=== PATIENT | female | born 1970 | race Caucasian/White ===

== ENCOUNTER 2023-12-22 16:01 | Outpatient (RCR) | payer BC, SELFPAY | END 2023-12-22 23:59 | disposition home or self-care (01) | LOC: RPT 16:01 | PROVIDERS: ATTENDING PHYSICIAN Student in an Organized Health Care Education/Training Program; FAMILY PHYSICIAN Nurse Practitioner | DX: M25.572 Pain in left ankle and joints of left foot (principal); M19.072 Primary osteoarthritis, left ankle and foot; Z73.6 Limitation of activities due to disability; R26.2 Difficulty in walking, not elsewhere classified; G89.29 Other chronic pain | CPT/HCPCS: 97110; 97161 ==

== ENCOUNTER → 2024-04-26 13:05 | Outpatient (REF) | payer BC, SELFPAY ==
[2024-04-26 13:06] LABS: % Basophils 1.1 % (0-2); % Eosinophils 0.4 % (0-6); % Immature Granulocytes 0.4 % (0-0.5); % Lymphocytes 28.7 % (20.5-51.1); % Monocytes 12.1 % (1.7-9.3); % Neutrophils 57.3 % (42.2-75.2); Absolute Basophils 0.1 10^3/uL (0-0.2); Absolute Lymphocytes 1.6 10^3/uL (1.2-3.4); Absolute Monocytes 0.7 10^3/uL (0.1-0.6); Absolute Neutrophils 3.2 10^3/uL (1.4-6.5); Hematocrit 41.9 % (37.0-47.0); Hemoglobin 14.3 g/dL (12.0-16.0); Mean Corp Hgb Conc. 34.1 g/dL (33.0-37.0); Mean Corpuscular Hgb 29.2 pg (27.0-31.0); Mean Corpuscular Volume 85.5 fL (81.0-99.0); Mean Platelet Volume 11.2 fL (7.4-10.4); Nucleated Red Blood Cells % 0 %; Platelet Count 284 10^3/uL (130-400); Red Cell Dist. Width 13.5 % (11.5-14.5); White Blood Cell Count 5.6 10^3/uL (4.8-10.8)
[2024-04-26 13:25] LABS: ALT (SGPT) 74 U/L (0-35); AST (SGOT) 44 U/L (14-36); Albumin 4.5 g/dl (3.5-5.0); Alkaline Phosphatase 87 U/L (38-126); Blood Urea Nitrogen 22 mg/dl (7-17); Calcium 10.1 mg/dl (8.4-10.2); Carbon Dioxide 31 mmol/L (22-30); Chloride 97 mmol/L (98-107); Glucose 95 mg/dl (70-99); HDL Cholesterol 59 mg/dl; LDL Cholesterol, Calculated 186 mg/dl; Potassium 3.8 mmol/L (3.5-5.1); Sodium 139 mmol/L (135-145); Total Bilirubin 0.6 mg/dl (0.2-1.3); Total Cholesterol 268 mg/dl (50-199); Total Protein 7.6 g/dl (6.3-8.2); Triglyceride 115 mg/dl (10-149); Very Low Density Lipoprotein 23 mg/dl (0-30); eGFR > 60.00
[2024-04-26 13:55] LABS: TSH 0.92 uIU/ml (0.47-4.68)
[2024-04-26 13:56] LABS: Estradiol 39.8 pg/ml
[2024-04-29 00:33] LABS: Thyroid Peroxidase Ab (TPO) 0.7 IU/mL (0.0-9.0)
== END ==
LOC: CLAB 13:05
PROVIDERS: ATTENDING PHYSICIAN Nurse Practitioner
DX: Z00.00 Encounter for general adult medical examination without abnormal findings (principal); E78.5 Hyperlipidemia, unspecified; R53.83 Other fatigue; N95.1 Menopausal and female climacteric states
CPT/HCPCS: 80053; 80061; 82670; 83001; 83002; 84443; 85025; 86376

== ENCOUNTER → 2024-05-04 08:15 | Outpatient (REF) | payer BC, SELFPAY | LOC: CPAP 08:15 | PROVIDERS: ATTENDING PHYSICIAN Nurse Practitioner Adult Health | DX: Z01.419 Encounter for gynecological examination (general) (routine) without abnormal findings (principal) | CPT/HCPCS: G0123 ==

== ENCOUNTER → 2024-06-22 07:23 | Outpatient (REF) | payer BC, SELFPAY | LOC: HWWDC 07:23 | PROVIDERS: ATTENDING PHYSICIAN Nurse Practitioner Adult Health; FAMILY PHYSICIAN Nurse Practitioner | DX: Z12.31 Encounter for screening mammogram for malignant neoplasm of breast (principal) | CPT/HCPCS: 77063; 77067 ==

== ENCOUNTER → 2024-10-18 15:21 | Outpatient (REF) | payer BC, SELFPAY ==
[2024-10-18 16:19] LABS: HDL Cholesterol 67 mg/dl; LDL Cholesterol, Calculated 81 mg/dl; Total Cholesterol 164 mg/dl (50-199); Triglyceride 82 mg/dl (10-149); Very Low Density Lipoprotein 16 mg/dl (0-30)
== END ==
LOC: CLAB 15:21
PROVIDERS: ATTENDING PHYSICIAN Nurse Practitioner
DX: E78.5 Hyperlipidemia, unspecified (principal)
CPT/HCPCS: 80061

== ENCOUNTER → 2025-01-11 07:32 | Outpatient (REF) | payer BC, SELFPAY | LOC: HWRAD 07:32 | PROVIDERS: ATTENDING PHYSICIAN Nurse Practitioner | DX: M25.521 Pain in right elbow (principal); M70.21 Olecranon bursitis, right elbow | CPT/HCPCS: 73080 ==

== ENCOUNTER → 2025-06-22 16:14 | Outpatient (REF) | payer BC, SELFPAY ==
[2025-06-22 17:05] LABS: Hematocrit 43.3 % (37.0-47.0); Hemoglobin 14.1 g/dL (12.0-16.0); Mean Corp Hgb Conc. 32.6 g/dL (33.0-37.0); Mean Corpuscular Volume 87.5 fL (81.0-99.0); Nucleated Red Blood Cells % 0 %; Platelet Count 260 10^3/uL (130-400); Red Cell Dist. Width 14.2 % (11.5-14.5)
[2025-06-22 17:18] LABS: ALT (SGPT) 60 U/L (0-35); AST (SGOT) 42 U/L (14-36); Albumin 4.7 g/dl (3.5-5.0); Alkaline Phosphatase 111 U/L (38-126); Blood Urea Nitrogen 15 mg/dl (7-17); Calcium 9.8 mg/dl (8.4-10.2); Carbon Dioxide 29 mmol/L (22-30); Chloride 100 mmol/L (98-107); Glucose 96 mg/dl (70-99); HDL Cholesterol 57 mg/dl; LDL Cholesterol, Calculated 96 mg/dl; Potassium 3.9 mmol/L (3.5-5.1); Sodium 137 mmol/L (135-145); Total Protein 7.7 g/dl (6.3-8.2); Very Low Density Lipoprotein 23 mg/dl (0-30); eGFR > 60.00
[2025-06-22 17:54] LABS: TSH 0.67 uIU/ml (0.47-4.68)
== END ==
LOC: CLAB 16:14
PROVIDERS: ATTENDING PHYSICIAN Nurse Practitioner
DX: E78.5 Hyperlipidemia, unspecified (principal); R53.83 Other fatigue; Z12.11 Encounter for screening for malignant neoplasm of colon; I10 Essential (primary) hypertension
CPT/HCPCS: 36415; 80053; 80061; 84443; 85025

== ENCOUNTER → 2025-06-28 07:32 | Outpatient (REF) | payer BC, SELFPAY | LOC: HWWDC 07:32 | PROVIDERS: ATTENDING PHYSICIAN Nurse Practitioner Adult Health; FAMILY PHYSICIAN Nurse Practitioner | DX: Z12.31 Encounter for screening mammogram for malignant neoplasm of breast (principal) | CPT/HCPCS: 77063; 77067 ==

== ENCOUNTER → 2025-06-30 07:44 | Outpatient (REF) | payer BC, SELFPAY ==
[2025-06-30 13:45] LABS: Ferritin 60.9 ng/ml (11.1-264.0)
[2025-06-30 14:17] LABS: GGTP 14 U/L (12-43)
[2025-06-30 14:40] LABS: Hepatitis C Antibody Negative (Negative)
== END ==
LOC: HWRAD 07:44
PROVIDERS: ATTENDING PHYSICIAN Nurse Practitioner
DX: R74.8 Abnormal levels of other serum enzymes (principal); M25.562 Pain in left knee
CPT/HCPCS: 36415; 73564; 82728; 82977; 86803; 87902

== ENCOUNTER → 2025-07-05 07:19 | Outpatient (REF) | payer BC, SELFPAY | LOC: HWRAD 07:19 | PROVIDERS: ATTENDING PHYSICIAN Nurse Practitioner | DX: R74.8 Abnormal levels of other serum enzymes (principal) | CPT/HCPCS: 76700 ==

== ENCOUNTER → 2025-09-14 15:22 | Outpatient (REF) | payer BC, SELFPAY | LOC: MRI 3T 15:22 | PROVIDERS: ATTENDING PHYSICIAN Nurse Practitioner | DX: K86.89 Other specified diseases of pancreas (principal) | CPT/HCPCS: 74183; A9575 ==

== ENCOUNTER → 2025-09-27 06:48 | Outpatient (REF) | payer BC, SELFPAY | LOC: PAVMRI 06:48 | PROVIDERS: ATTENDING PHYSICIAN Specialist; FAMILY PHYSICIAN Nurse Practitioner | DX: M25.562 Pain in left knee (principal) | CPT/HCPCS: 73721 ==